=== PATIENT | male | born 1975 | race Caucasian/White ===

== ENCOUNTER 2016-04-24 12:53 | Emergency (ER) | payer SELFPAY ==
[~2016-04-24] VITALS: Ht 172.7 cm; Wt 108.8 kg
[2016-04-24] MEDS ORDERED: TEGRETOL PO (12:57)
--- NOTE | 2016-04-24 13:11 | NUR ---
pt positioned for comfort, side rails up, pt awaiting for lab draw. monitor shows sinus tach, stable vitals./
[2016-04-24] MEDS ORDERED: ACETAMINOPHEN 325 MG TABLET PO ONE (13:15)
[2016-04-24] MEDS ORDERED: ACETAMINOPHEN ES 500 MG TABLET ONE (13:22)
[2016-04-24] MEDS ORDERED: MAG HYDROX/AL HYDROX/SIMETH 30 ML LIQUID UDC ONE (13:30)
[2016-04-24] MEDS ORDERED: DICYCLOMINE HCL 10 MG/5 ML UDC LIQ PO ONE (13:30)
[2016-04-24] MEDS ORDERED: MAG HYDROX/AL HYDROX/SIMETH 30 ML LIQUID UDC PO ONE (13:30)
[2016-04-24] MEDS ORDERED: DICYCLOMINE HCL 10 MG/5 ML UDC LIQ ONE (13:30)
[2016-04-24 13:36] LABS: CALCIUM 9.4 mg/dL (8.5-10.1); CREATININE 1.2 mg/dL (0.6-1.3); POTASSIUM 4.7 mmol/L (3.5-5.1)
[2016-04-24 13:43] LABS: CARBAMAZEPINE (TEGRETOL) 2.9 ug/mL (4.0-11.9)
[2016-04-24] MEDS ORDERED: CARBAMAZEPINE 200 MG TABLET PO ONE (14:00)
[2016-04-24] MEDS ORDERED: CARBAMAZEPINE 200 MG TABLET ONE (14:05)
--- NOTE | 2016-04-24 14:07 | NUR ---
mse completed, pt d/c'd home, aci/copy of lab tests given. pt ambulated w/o diff/took all belongings.
[2016-04-24 14:09] VITALS: BP 129/84
== END 2016-04-24 14:09 | disposition home or self-care (01) ==
LOC: ER 12:53
DX: G40.909 Epilepsy, unspecified, not intractable, without status epilepticus (principal)
CPT/HCPCS: 36415; A4663